=== PATIENT | male | born 1980 | race African-American/Black ===

== ENCOUNTER 2024-11-16 10:26 | Emergency (ER) | payer OTHER ==
[~2024-11-16] VITALS: Ht 182.8 cm; Wt 102.1 kg
[2024-11-16] MEDS ORDERED: AVPAK AZITHROM250 M1 PO (11:41)
== END 2024-11-16 12:22 | disposition home or self-care (01) ==
LOC: ED 10:26
DX: J40 Bronchitis, not specified as acute or chronic (principal); Z20.822 Contact with and (suspected) exposure to COVID-19; R19.7 Diarrhea, unspecified; Z88.5 Allergy status to narcotic agent; Z91.041 Radiographic dye allergy status